=== PATIENT | female | born 1945 | race Caucasian/White ===

== ENCOUNTER → 2021-11-10 | Outpatient (CLI) | payer MEDICARE | LOC: WCC 07:29 | DX: E11.621 Type 2 diabetes mellitus with foot ulcer (principal); L97.425 Non-pressure chronic ulcer of left heel and midfoot with muscle involvement without evidence of necrosis; I10 Essential (primary) hypertension; E11.40 Type 2 diabetes mellitus with diabetic neuropathy, unspecified; E66.01 Morbid (severe) obesity due to excess calories; H90.5 Unspecified sensorineural hearing loss; M21.6X2 Other acquired deformities of left foot; L84 Corns and callosities; M14.672 Charcot's joint, left ankle and foot; M21.42 Flat foot [pes planus] (acquired), left foot; Z87.891 Personal history of nicotine dependence ==

== ENCOUNTER → 2021-11-18 | Outpatient (CLI) | payer MEDICARE | LOC: WCC 07:50 | DX: E11.621 Type 2 diabetes mellitus with foot ulcer (principal); L97.425 Non-pressure chronic ulcer of left heel and midfoot with muscle involvement without evidence of necrosis; I10 Essential (primary) hypertension; E11.40 Type 2 diabetes mellitus with diabetic neuropathy, unspecified; E66.01 Morbid (severe) obesity due to excess calories; H90.5 Unspecified sensorineural hearing loss; M21.6X2 Other acquired deformities of left foot; L84 Corns and callosities; M14.672 Charcot's joint, left ankle and foot; M21.42 Flat foot [pes planus] (acquired), left foot ==

== ENCOUNTER → 2021-12-01 | Outpatient (CLI) | payer MEDICARE | LOC: WCC 08:11 | DX: E11.621 Type 2 diabetes mellitus with foot ulcer (principal); L97.425 Non-pressure chronic ulcer of left heel and midfoot with muscle involvement without evidence of necrosis; I10 Essential (primary) hypertension; E11.40 Type 2 diabetes mellitus with diabetic neuropathy, unspecified; E66.01 Morbid (severe) obesity due to excess calories; H90.5 Unspecified sensorineural hearing loss; M21.6X2 Other acquired deformities of left foot; L84 Corns and callosities; M14.672 Charcot's joint, left ankle and foot; M21.42 Flat foot [pes planus] (acquired), left foot ==

== ENCOUNTER → 2021-12-08 | Outpatient (CLI) | payer MEDICARE | LOC: WCC 07:57 | DX: E11.621 Type 2 diabetes mellitus with foot ulcer (principal); L97.422 Non-pressure chronic ulcer of left heel and midfoot with fat layer exposed; I10 Essential (primary) hypertension; E11.40 Type 2 diabetes mellitus with diabetic neuropathy, unspecified; E66.01 Morbid (severe) obesity due to excess calories; H90.5 Unspecified sensorineural hearing loss; M21.6X2 Other acquired deformities of left foot; L84 Corns and callosities; M14.672 Charcot's joint, left ankle and foot; M21.42 Flat foot [pes planus] (acquired), left foot ==

== ENCOUNTER → 2021-12-23 | Outpatient (CLI) | payer MEDICARE | LOC: WCC 07:13 | DX: E11.621 Type 2 diabetes mellitus with foot ulcer (principal); L97.422 Non-pressure chronic ulcer of left heel and midfoot with fat layer exposed; I10 Essential (primary) hypertension; E11.40 Type 2 diabetes mellitus with diabetic neuropathy, unspecified; E66.01 Morbid (severe) obesity due to excess calories; H90.5 Unspecified sensorineural hearing loss; M21.6X2 Other acquired deformities of left foot; L84 Corns and callosities; M14.672 Charcot's joint, left ankle and foot; M21.42 Flat foot [pes planus] (acquired), left foot ==